=== PATIENT | male | born 1945 | race Caucasian/White ===

== ENCOUNTER → 2024-09-10 07:25 | Outpatient (REF) | payer BC, SELFPAY | LOC: RAD 07:25 | PROVIDERS: ATTENDING PHYSICIAN Specialist; FAMILY PHYSICIAN Family Medicine | DX: M19.012 Primary osteoarthritis, left shoulder (principal) | CPT/HCPCS: 73200 ==

== ENCOUNTER → 2024-12-20 07:38 | Outpatient (REF) | payer BC, SELFPAY | LOC: HWRCS 07:38 | PROVIDERS: ATTENDING PHYSICIAN Internal Medicine Cardiovascular Disease; FAMILY PHYSICIAN Family Medicine | DX: R07.89 Other chest pain (principal); I25.2 Old myocardial infarction | CPT/HCPCS: 78452; 93017; A9500 ==

== ENCOUNTER → 2025-01-06 12:48 | Outpatient (REF) | payer BC, SELFPAY | LOC: HWRCS 12:48 | PROVIDERS: ATTENDING PHYSICIAN Internal Medicine Cardiovascular Disease; FAMILY PHYSICIAN Family Medicine | DX: I25.10 Atherosclerotic heart disease of native coronary artery without angina pectoris (principal); I42.9 Cardiomyopathy, unspecified | CPT/HCPCS: 93306 ==

== ENCOUNTER 2025-03-26 06:13 | Day surgery (SDC) | payer BC, SELFPAY ==
--- NOTE | 2025-03-05 10:57 | CM ---
CM reviewed medical records. Patient lives independently with . Patient does have a history of VN, but is currently not on service. Patient does not have a SNF history. Patient does not have a cane or walker. Patient is active with his PCP.
Patient has medication coverage.
Patient's will be available for supervision post operatively.
PLAN: home, outpatient PT when medically cleared.
[2025-03-11 14:10] VITALS: BMI 27.1
[2025-03-11 14:43] LABS: Hematocrit 44.3 % (39.0-52.0); Hemoglobin 15.4 g/dL (13.0-18.0); Mean Corp Hgb Conc. 34.8 g/dL (33.0-37.0); Mean Corpuscular Volume 87.0 fL (80.0-94.0); Platelet Count 204 10^3/uL (130-400); Red Cell Dist. Width 12.3 % (11.5-14.5)
[2025-03-11 14:56] VITALS: BMI 27.1
[2025-03-11 15:00] LABS: ALT (SGPT) 33 U/L (0-50); AST (SGOT) 27 U/L (17-59); Albumin 4.5 g/dl (3.5-5.0); Alkaline Phosphatase 59 U/L (38-126); Blood Urea Nitrogen 23 mg/dl (9-20); Calcium 8.7 mg/dl (8.4-10.2); Carbon Dioxide 25 mmol/L (22-30); Chloride 106 mmol/L (98-107); Estimated Creatinine Clearance 69 ml/min; Glucose 87 mg/dl (70-99); Potassium 4.4 mmol/L (3.5-5.1); Sodium 139 mmol/L (135-145); Total Protein 7.3 g/dl (6.3-8.2); eGFR > 60.00
[2025-03-12 07:32] LABS: Glycohemoglobin (HgbA1c) 5.8 % (4.0-5.6)
[2025-03-26] VITALS (8 sets, daily range): BP systolic 126–133; BP diastolic 70–73
[2025-03-26] MEDS: CELEBREX 200 MG PO (07:03)
[2025-03-26] MEDS: TYLENOL 1000 MG PO (07:03)
[2025-03-26] MEDS: NORMOSOL-R/PLASMALYTE-A 1000 IV (07:03)
--- NOTE | 2025-03-26 10:43 | W.DS.TRANS ---
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
-
Discharge Instructions:
Sleep Apnea Risk Intermediate
Discharge Diagnosis/Procedures Delvis Moreno 03/26/25
Diet As tolerated
Activity No strenuous activity
Driving Restrictions No driving
Instructions:
Stand-Alone Forms: SDS Total Shoulder D/C Inst.
Changes to Home Medications: Yes
Discharge Medications:
DC Medications w/original date entered in [employer]
atorvastatin 40 mg tablet 40 mg PO QPM High cholesterol 04/25/18
cholecalciferol (vitamin D3) 50 mcg (2,000 unit) tablet 2,000 units PO DAILY 03/30/21
Vitamin B-12 1 tab PO DAILY 03/10/25
magnesium 2 tab PO HS 03/10/25
celecoxib 200 mg capsule (Celebrex) 200 mg PO DAILY #14 caps 03/11/25
doxycycline monohydrate 100 mg capsule 100 mg PO BID #7 caps 03/11/25
famotidine 20 mg tablet (Pepcid) 20 mg PO HS #30 tabs 03/11/25
gabapentin 300 mg capsule 300 mg PO HS neuropathic pain/sleep #10 caps 03/11/25
mupirocin 2 % topical ointment 1 applic intranasal BID #1 tube 03/11/25
ondansetron HCl 4 mg tablet 4 mg PO Q6H PRN nausea and vomiting #30 tabs 03/11/25
oxycodone 5 mg tablet 5 - 10 mg (1 - 2 x 5 mg) PO Q6H PRN moderate-severe pain #30 tabs 03/11/25
Saccharomyces boulardii 250 mg capsule (Florastor) 250 mg PO BID #1 cap 03/26/25
aspirin 325 mg tablet 325 mg PO DAILY blood clot prevention #1 tab 03/26/25
docusate sodium 100 mg capsule (Colace) 100 mg PO BID stool softner #1 cap 03/26/25
sennosides 8.6 mg tablet (Senokot) 17.2 mg (2 x 8.6 mg) PO BID laxative #2 tabs 03/26/25
Home Medication Changes
celecoxib 200 mg capsule (Celebrex) 200 mg PO DAILY #14 caps 03/11/25
doxycycline monohydrate 100 mg capsule 100 mg PO BID #7 caps 03/11/25
famotidine 20 mg tablet (Pepcid) 20 mg PO HS #30 tabs 03/11/25
gabapentin 300 mg capsule 300 mg PO HS neuropathic pain/sleep #10 caps 03/11/25
mupirocin 2 % topical ointment 1 applic intranasal BID #1 tube 03/11/25
ondansetron HCl 4 mg tablet 4 mg PO Q6H PRN nausea and vomiting #30 tabs 03/11/25
oxycodone 5 mg tablet 5 - 10 mg (1 - 2 x 5 mg) PO Q6H PRN moderate-severe pain #30 tabs 03/11/25
Saccharomyces boulardii 250 mg capsule (Florastor) 250 mg PO BID #1 cap 03/26/25
aspirin 325 mg tablet 325 mg PO DAILY blood clot prevention #1 tab 03/26/25
docusate sodium 100 mg capsule (Colace) 100 mg PO BID stool softner #1 cap 03/26/25
sennosides 8.6 mg tablet (Senokot) 17.2 mg (2 x 8.6 mg) PO BID laxative #2 tabs 03/26/25
Pending Results: No
[2025-03-26] MEDS: ANCEF 5 IV (11:47)
== END 2025-03-26 11:55 | disposition home or self-care (01) ==
LOC: SDS 06:13
PROVIDERS: ATTENDING PHYSICIAN Orthopaedic Surgery Hand Surgery; FAMILY PHYSICIAN Family Medicine; OTHER PHYSICIAN Physician Assistant
DX: M19.012 Primary osteoarthritis, left shoulder (principal)
CPT/HCPCS: 23472; C1776; C1713; 36415; 73020; 80053; 83036; 85027; 87070; 93005

== ENCOUNTER 2025-04-14 18:46 | Emergency (ER) | payer BC, MEDICARE, SELFPAY ==
[2025-04-14 18:51] VITALS: BP 164/79
[2025-04-14 19:33] LABS: Urine Character Clear (Clear)
[2025-04-14 19:39] LABS: Urine Squamous Cell 0-2 /LPF (Few)
[2025-04-14 19:40] LABS: Urine White Cell 0-2 /HPF (0-5)
[2025-04-14 19:41] LABS: Hematocrit 44.0 % (39.0-52.0); Hemoglobin 15.1 g/dL (13.0-18.0); Mean Corp Hgb Conc. 34.3 g/dL (33.0-37.0); Mean Corpuscular Volume 86.3 fL (80.0-94.0); Nucleated Red Blood Cells % 0 % (-); Platelet Count 206 10^3/uL (130-400); Red Cell Dist. Width 13.1 % (11.5-14.5)
[2025-04-14 19:54] LABS: ALT (SGPT) 25 U/L (0-50); AST (SGOT) 23 U/L (17-59); Albumin 4.8 g/dl (3.5-5.0); Alkaline Phosphatase 71 U/L (38-126); Blood Urea Nitrogen 27 mg/dl (9-20); Calcium 9.4 mg/dl (8.4-10.2); Carbon Dioxide 24 mmol/L (22-30); Chloride 103 mmol/L (98-107); Glucose 98 mg/dl (70-99); Potassium 4.0 mmol/L (3.5-5.1); Sodium 138 mmol/L (135-145); Total Protein 8.0 g/dl (6.3-8.2); eGFR > 60.00
[2025-04-14 21:14] VITALS: BP 146/75
[2025-04-14] MEDS: TYLENOL 650 MG PO (21:17)
--- NOTE | 2025-04-14 22:29 | ED.GENMED ---
History of Present Illness
General
Chief Complaint: Fever
Source: patient
Time Seen by Provider: 04/14/25 22:15
History of Present Illness
History of Present Illness:
79-year-old male presents the emergency room for evaluation of a fever. Patient had temperature today of 102.6. Patient was particular concerned about his fever because he had a left shoulder replacement performed on March 26. He is not having
increased pain in the joint. Patient denies any cough, abdominal pain, urinary symptoms, sore throat, nausea or vomiting. He denies feeling short of breath. He does not have any chest pain nor pain with deep inspiration. Pt has not noticed any
rash. he is not aware of any tick exposures.
Past History
Past History
ED Past Medical History: CAD, Cancer (Prostate cancer), Hypercholesterolemia, [place] (1985) and Other (pulmonary embolism)
ED Past Surgical History: Cardiac (CABG 2012, cardiac catheterization 2017), Tonsilectomy and Urological (TURP 2005)
Social History
Tobacco: Non-smoker
Alcohol: None
Drug: None
Personal:
Living: with family
Employment: Employed
Family History
Family History: CAD
Phy Exam
Physical Exam
Physical Exam:
General: Awake, Alert, Oriented X3. No acute distress.
Vitals: unremarkable
Head: Atraumatic
Eyes: Pupils equal, EOMI
Throat: Airway intact, no exudates
Neck: Trachea midline
Lungs: Clear and equal b/l
Heart: Regular rate, no murmurs
Abd: Soft, Nontender, No pulsatile mass
Neuro: Nonfocal
Skin: Warm, dry, no rash
Extremities: pulses equal b/l, no edema. Left shoulder incision well-approximated and covered with Steri-Strips. There is no erythema or discharge noted. The shoulder itself does not appear particularly swollen. There is no redness about the
joint itself.
Course
Orders/Labs/Results
Orders:
Orders
04/14/25 19:00
Electrocardiogram (*1) Urgent
Reason for Study: Other
Other Reason for Exam: Possible Sepsis
Cardiac Monitoring- Treatment ONCE
EKG- Treatment ONCE
IV Insert/Care/Rem.- Treatment PRN
O2 Therapy [RESP] Urgent
Titrate/Wean O2 to maintain O2 sat greater than (%): 93
Special Instructions: TO MAINTAIN CONTINUOUS O2 SATS > OR = 93%
Pulse Ox/cont/shift [RESP] Urgent
Quantity: 1
Special Instructions: CONTINUOUS
04/14/25 19:22
Complete Blood Count/With Diff Urgent
Comprehensive Metabolic Panel Urgent
Lactic Acid Q4H
Comment: ON ICE, CANCEL 2ND ORDER IF FIRST LACTIC ACID LEVEL <2
Lyme Progressive Urgent
Date Specimen was Collected: 04/14/25
Time Specimen was Collected: 19:00
Comment: ADD ON
Urinalysis Reflex To Culture Urgent
Date Specimen was Collected: 04/14/25
Time Specimen was Collected: 19:00
Urine Microscopic Reflex Cult Urgent
Blood Culture Q20M
LEE Source: Blood/Venous
Specimen Description:
Date Specimen was Collected: 04/14/25
Time Specimen was Collected: 19:00
Comment: Urgent from separate sites. If patient screens positive for possible sepsis
04/14/25 21:14
Acetaminophen [Tylenol] 650 mg .ROUTE .STK-MED ONE
04/14/25 21:16
Acetaminophen [Tylenol] 650 mg PO NOW STA
04/14/25 22:23
0.9% Sodium Chloride 1000 ml [Nss] 1,000 ml IV BOLUS
04/14/25 22:30
CR Chest - 2 Views Urgent
Comment:
Reason For Exam: fever
04/14/25 22:43
COVID-19 Antigen Urgent
Source: Nasal Swab
Ehrlichia/Anaplasma by PCR [S] Urgent
Blood Culture Q20M
LEE Source: Blood/Venous
Specimen Description:
Comment: Urgent from separate sites. If patient screens positive for possible sepsis
Blood Parasites Urgent
LEE Source: Blood/Venous
Specimen Description:
Influenza A+B Rapid Molecular Urgent
LEE Source: Nasal Swab
Specimen Description:
04/15/25 00:34
Add On- LAB Urgent
Tests Added?: lyme progressive
Abnormal Lab Results
04/14/25
19:22
Absolute Neuts (auto) 6.6 H 10^3/uL
(1.4-6.5)
Absolute Lymphs (auto) 0.6 L 10^3/uL
(1.2-3.4)
Neutrophils % 85.1 H %
(42.2-75.2)
Lymphocytes % 8.2 L %
(20.5-51.1)
BUN 27 H mg/dl
(9-20)
Lactic Acid 2.1 H mmol/L
(0.7-2.0)
Total Bilirubin 2.1 H mg/dl
(0.2-1.3)
Ur Occult Blood Reflex 2+ A
(Negative)
Urine RBC 3-6 A /HPF
(0-2)
Urine Bacteria (Reflex) Few A
(Negative)
Urine Albumin (Reflex) 1+ A
(Neg - Trace)
04/14/25 19:22
04/14/25 19:22
Vital Signs
Initial and Last Documented VS:
Initial Vital Signs
Temp Pulse Resp BP Pulse Ox
100.3 F 99 20 164/79 96
04/14/25 18:51 04/14/25 18:51 04/14/25 18:51 04/14/25 18:51 04/14/25 18:51
Last Documented Vital Signs
Temp Pulse Resp BP Pulse Ox
98.7 F 85 26 146/75 95
04/14/25 23:14 04/14/25 23:10 04/14/25 23:10 04/14/25 21:14 04/14/25 22:30
MDM/Problems Addressed
Differential Diagnosis Includes:
Viral illness, pneumonia, urinary tract infection, tickborne illness like Lyme, babesiosis etc.
MDM/Problems Addressed:
Patient presents with fever and chills. Exam does not suggest a specific source of infection. However his left shoulder incision appears intact. There is no erythema or purulent discharge from the wound itself. The s patient has not experienced
increased pain in the left shoulder. Overall patient is hemodynamically stable. He is stable for discharge home and we will contact him if any outstanding tests are positive. Emphasized patient to return to the emergency room if he has a getting
worse or has other concerns
*Pulse Oximetry
SaO2: 95
Oxygen Mode of Delivery: Room air
Patient hypoxic: no
*Critical Care Note
Total Time (30-74mins, 75-104mins- exclusive of procedures): Not Applicable
ED Attending Note
-
Portions of this chart may have been created with voice recognition software.� Occasional wrong word or��sound alike� substitutions may have occurred due to the inherent limitations of voice recognition software.
Discharge Plan
Departure
Patient Disposition: Home (Routine Discharge)
Date of Disposition: 04/15/25
Time of Disposition: 00:33
Patient with high blood pressure during this ER visit?: Yes
Condition: Good
Discharge Problem:
Fever
Instructions: Fever, Adult (DC), Viral Syndrome (DC), BLOOD PRESSURE
Prescriptions:
No Action
atorvastatin 40 MG tablet
40 mg PO QPM
cholecalciferol (vitamin D3) 2,000 UNITS tablet
2,000 units PO DAILY 0RF
Vitamin B-12
1 tab PO DAILY
magnesium
2 tab PO HS
oxycodone 5 mg tablet
5 - 10 mg PO Q6H PRN (Reason: moderate-severe pain) Qty: 30 0RF
Rx Instructions:
1 tab for moderate pain, 2 if severe.
Dx total joint.
celecoxib [Celebrex] 200 mg capsule
200 mg PO DAILY Qty: 14 0RF
Rx Instructions:
Take with food.
DO NOT take within 2 hours of Aspirin post-surgery.
gabapentin 300 mg capsule
300 mg PO HS Qty: 10 0RF
ondansetron HCl 4 mg tablet
4 mg PO Q6H PRN (Reason: nausea and vomiting) Qty: 30 0RF
famotidine [Pepcid] 20 mg tablet
20 mg PO HS Qty: 30 0RF
Rx Instructions:
Take nightly while on post-surgical pain meds to reduce GI upset.
doxycycline monohydrate 100 mg capsule
100 mg PO BID Qty: 7 0RF
Rx Instructions:
Start night of discharge and continue twice a day until finished.
Take with probiotic.
mupirocin 2 % ointment
1 applic intranasal BID Qty: 1 0RF
aspirin 325 mg tablet
325 mg PO DAILY Qty: 1 0RF
Rx Instructions:
Take with food
docusate sodium [Colace] 100 mg capsule
100 mg PO BID Qty: 1 0RF
Saccharomyces boulardii [Florastor] 250 mg capsule
250 mg PO BID Qty: 1 0RF
sennosides [Senokot] 8.6 mg tablet
17.2 mg PO BID Qty: 2 0RF
Referrals:
Paolo Moreno MD [Family Provider, Family Practice]
Activity Restrictions/Additional Instructions:
Testing here in the emergency room does not reveal a source for your fever. Additional test are pending including test for tickborne illness and blood cultures. We will contact you if anything is positive. Return to the emergency room should you
feel like you are getting worse, Dr. Garcia communicate with me that it is fine for you to start moving the left shoulder
Interventions
Interventions:
*Risk Screen - Suicide Last Done: 04/14/25 18:51
*General Assessment Last Done: 04/14/25 18:51
*Neglect/Abuse Screening Last Done: 04/14/25 18:51
*ED- Fall Risk Assessment Last Done: 04/14/25 18:51
*ED COVID-19 Vaccine History Last Done: 04/14/25 18:51
*Nursing Disposition Last Done: 04/15/25 00:59
ED- Neurological Assessment Last Done: 04/14/25 23:13
ED-Skin Assessment Last Done: 04/14/25 23:14
Discharge Date and Time
Discharge Date/Time: 04/15/25 01:00
Print Language: YORUBA
[2025-04-14] MEDS: NSS 1000 IV (23:05)
[2025-04-14 23:34] LABS: COVID-19 Antigen Negative (Negative)
[2025-04-17 15:31] LABS: Lyme Antibody Screen, EIA Negative (Negative)
== END 2025-04-15 01:00 | disposition home or self-care (01) ==
LOC: EMR 18:46
PROVIDERS: Emergency Medicine; EMERGENCY PHYSICIAN Emergency Medicine; FAMILY PHYSICIAN Family Medicine
DX: R50.9 Fever, unspecified (principal); R03.0 Elevated blood-pressure reading, without diagnosis of hypertension; I25.810 Atherosclerosis of coronary artery bypass graft(s) without angina pectoris; E78.00 Pure hypercholesterolemia, unspecified; I25.2 Old myocardial infarction; Z95.1 Presence of aortocoronary bypass graft; Z86.711 Personal history of pulmonary embolism; Z85.46 Personal history of malignant neoplasm of prostate; Z90.79 Acquired absence of other genital organ(s); Z96.612 Presence of left artificial shoulder joint; Z82.49 Family history of ischemic heart disease and other diseases of the circulatory system
CPT/HCPCS: 99284; 96360; 71046; 80053; 81003; 81015; 83605; 85025; 86618; 87015; 87040; 87077; 87186; 87205; 87207; 87468; 87484; 87502; 87798; 87811

== ENCOUNTER 2025-04-15 13:54 | Emergency (ER) | payer BC, MEDICARE, SELFPAY ==
[2025-04-15 13:55] VITALS: BP 113/60
--- NOTE | 2025-04-15 15:24 | ED.GENMED ---
Addendum entered and electronically signed by Leonor Mejia PA-C 04/16/25 08:01:
Gram-negative rods in the blood cultures, patient was called back for this yesterday but was feeling well. He had a second set of cultures drawn and was sent home. called saying that the patient now has a new fever
I spoke with the saying that he should come back in to be evaluated and likely admitted
Original Note:
History of Present Illness
General
Chief Complaint: Fever
Time Seen by Provider: 04/15/25 14:10
History of Present Illness
History of Present Illness:
79-year-old male presents to the emergency department due to abnormal blood culture results. He was seen in the emergency department yesterday for evaluation of fever and at which time broad lab evaluation was grossly unremarkable. He was
discharged with tick panel and blood cultures pending. Was called to return to the ER today due to 1 out of 2 blood cultures positive for gram-negative bacilli. He is approximately 18 days status post left total shoulder arthroplasty. He states
fever resolved today and he feels overall well. Denies URI symptoms, coughing, shortness of breath, chest pain, rashes, painful urination, nausea, vomiting, or diarrhea.
Past History
Past History
ED Past Medical History: CAD, Cancer (Prostate cancer), Hypercholesterolemia, [place] (1985) and Other (pulmonary embolism)
ED Past Surgical History: Cardiac (CABG 2012, cardiac catheterization 2017), Tonsilectomy and Urological (TURP 2005)
Social History
Tobacco: Non-smoker
Alcohol: None
Drug: None
Personal:
Living: with family
Employment: Employed
Family History
Family History: CAD
Review of Systems
Review of Systems
Allergies reviewed?: Yes
All Other Systems: ROS reviewed and negative except as documented in HPI and ROS
Phy Exam
Physical Exam
Physical Exam:
GEN: Well appearing, NAD, WDWN
HEENT: Oral mucosa moist, no scleral icterus
Cardiac: Regular rate
Lung: No respiratory distress, no tachypnea
MSK: No gross deformity or injuries
Skin: Good color, no pallor or jaundice, no rashes
Neuro: AO x3, moves all extremities freely
Psych: Calm, cooperative
Course
Orders/Labs/Results
Orders:
Orders
04/15/25 15:16
Blood Culture Q30M
LEE Source: Blood/Venous
Specimen Description:
04/15/25 15:31
Blood Culture Q30M
LEE Source: Blood/Venous
Specimen Description:
Vital Signs
Initial and Last Documented VS:
Initial Vital Signs
Temp Pulse Resp BP Pulse Ox
97.5 F 65 18 113/60 96
04/15/25 13:55 04/15/25 13:55 04/15/25 13:55 04/15/25 13:55 04/15/25 13:55
Last Documented Vital Signs
Temp Pulse Resp BP Pulse Ox
97.5 F 65 18 113/60 96
04/15/25 13:55 04/15/25 13:55 04/15/25 13:55 04/15/25 13:55 04/15/25 15:25
MDM/Problems Addressed
MDM/Problems Addressed:
Patient is clinically well, given that 1 out of 2 are positive this remains a potential contaminant. I discussed the case with infectious disease who feels it is reasonable to hold off on empiric antibiotics pending repeat blood cultures and
further speciation of bacteria. Patient is comfortable with this plan, no antibiotics initiated at this point.
*Pulse Oximetry
SaO2: 96
Oxygen Mode of Delivery: Room air
Patient hypoxic: no
*Critical Care Note
Total Time (30-74mins, 75-104mins- exclusive of procedures): Not Applicable
ED Attending Note
-
Portions of this chart may have been created with voice recognition software.� Occasional wrong word or��sound alike� substitutions may have occurred due to the inherent limitations of voice recognition software.
Discharge Plan
Departure
Patient Disposition: Home (Routine Discharge)
Date of Disposition: 04/15/25
Time of Disposition: 15:24
Patient with high blood pressure during this ER visit?: No
Discharge Problem:
Positive blood culture
Prescriptions:
No Action
atorvastatin 40 MG tablet
40 mg PO QPM
cholecalciferol (vitamin D3) 2,000 UNITS tablet
2,000 units PO DAILY 0RF
Vitamin B-12
1 tab PO DAILY
magnesium
2 tab PO HS
oxycodone 5 mg tablet
5 - 10 mg PO Q6H PRN (Reason: moderate-severe pain) Qty: 30 0RF
Rx Instructions:
1 tab for moderate pain, 2 if severe.
Dx total joint.
celecoxib [Celebrex] 200 mg capsule
200 mg PO DAILY Qty: 14 0RF
Rx Instructions:
Take with food.
DO NOT take within 2 hours of Aspirin post-surgery.
gabapentin 300 mg capsule
300 mg PO HS Qty: 10 0RF
ondansetron HCl 4 mg tablet
4 mg PO Q6H PRN (Reason: nausea and vomiting) Qty: 30 0RF
famotidine [Pepcid] 20 mg tablet
20 mg PO HS Qty: 30 0RF
Rx Instructions:
Take nightly while on post-surgical pain meds to reduce GI upset.
doxycycline monohydrate 100 mg capsule
100 mg PO BID Qty: 7 0RF
Rx Instructions:
Start night of discharge and continue twice a day until finished.
Take with probiotic.
mupirocin 2 % ointment
1 applic intranasal BID Qty: 1 0RF
aspirin 325 mg tablet
325 mg PO DAILY Qty: 1 0RF
Rx Instructions:
Take with food
docusate sodium [Colace] 100 mg capsule
100 mg PO BID Qty: 1 0RF
Saccharomyces boulardii [Florastor] 250 mg capsule
250 mg PO BID Qty: 1 0RF
sennosides [Senokot] 8.6 mg tablet
17.2 mg PO BID Qty: 2 0RF
Referrals:
Paolo Moreno MD [Family Provider, Family Practice]
Activity Restrictions/Additional Instructions:
We will follow your blood cultures from both yesterday and today and contact you if there are any results that warrant treatment. These result each morning over the course of 5 days before being finalized. Return to the ER if you develop a
recurrence of fever
Interventions
Interventions:
*Risk Screen - Suicide Last Done: 04/15/25 13:55
*General Assessment Last Done: 04/15/25 13:55
*Neglect/Abuse Screening Last Done: 04/15/25 13:55
*Nursing Disposition Last Done: 04/15/25 15:50
ED- Neurological Assessment Last Done: 04/15/25 15:50
ED-Skin Assessment Last Done: 04/15/25 15:50
Discharge Date and Time
Discharge Date/Time: 04/15/25 15:51
Print Language: GUAMANIAN
== END 2025-04-15 15:51 | disposition home or self-care (01) ==
LOC: EMR 13:54
PROVIDERS: EMERGENCY PHYSICIAN Emergency Medicine; FAMILY PHYSICIAN Family Medicine
DX: R50.9 Fever, unspecified (principal); R78.81 Bacteremia; I25.10 Atherosclerotic heart disease of native coronary artery without angina pectoris; E78.00 Pure hypercholesterolemia, unspecified; I25.2 Old myocardial infarction; Z98.890 Other specified postprocedural states; Z79.82 Long term (current) use of aspirin; Z95.1 Presence of aortocoronary bypass graft; Z86.711 Personal history of pulmonary embolism; Z85.46 Personal history of malignant neoplasm of prostate; Z88.0 Allergy status to penicillin; Z91.030 Bee allergy status
CPT/HCPCS: 99283; 87040

== ENCOUNTER 2025-04-16 13:51 | Inpatient (IN) | payer BC, MEDICARE, SELFPAY ==
[2025-04-16] VITALS (7 sets, daily range): BP systolic 123–155; BP diastolic 66–80; BMI 28.5; BMI 28.0
[2025-04-16 11:18] LABS: Urine Character Clear (Clear)
[2025-04-16 11:26] LABS: Hematocrit 38.9 % (39.0-52.0); Hemoglobin 13.3 g/dL (13.0-18.0); Mean Corp Hgb Conc. 34.2 g/dL (33.0-37.0); Mean Corpuscular Volume 85.9 fL (80.0-94.0); Nucleated Red Blood Cells % 0 % (-); Platelet Count 177 10^3/uL (130-400); Red Cell Dist. Width 13.2 % (11.5-14.5)
[2025-04-16] MEDS: MAXIPIME 2000 MG IV (11:28)
[2025-04-16 11:34] LABS: ALT (SGPT) 28 U/L (0-50); AST (SGOT) 26 U/L (17-59); Albumin 3.8 g/dl (3.5-5.0); Alkaline Phosphatase 53 U/L (38-126); Blood Urea Nitrogen 17 mg/dl (9-20); Calcium 8.7 mg/dl (8.4-10.2); Carbon Dioxide 25 mmol/L (22-30); Chloride 107 mmol/L (98-107); Estimated Creatinine Clearance 75 ml/min; Glucose 102 mg/dl (70-99); Potassium 3.8 mmol/L (3.5-5.1); Sodium 138 mmol/L (135-145); Total Protein 6.5 g/dl (6.3-8.2); eGFR > 60.00
[2025-04-16 11:40] LABS: Urine White Cell 0-2 /HPF (0-5)
--- NOTE | 2025-04-16 11:48 | ED.GENMED ---
History of Present Illness
General
Chief Complaint: Fever
Source: patient
Time Seen by Provider: 04/16/25 09:29
History of Present Illness
History of Present Illness:
Note:
CHIEF COMPLAINT(S)
Fever and chills.
HISTORY OF PRESENT ILLNESS
The patient is a 79-year-old male who presented to the emergency department with a high fever and chills that started recently. Initial blood cultures drawn earlier showed the presence of bacteria in the bloodstream. The specific bacteria identified
is a gram-negative bacilli, which is uncommon on the skin and may originate from the urinary or gastrointestinal tracts. This morning, the patient woke up with a slightly elevated fever after being advised to return to the hospital. He mentions
intermittent coughing but denies any significant respiratory distress, abdominal pain, or urinary discomfort, except for increased frequency of urination at night due to shoulder pain.
The patient underwent shoulder surgery, which is currently healing. Post-surgery, there was some swelling and redness around the site, though it has improved. He complains of postoperative shoulder discomfort, particularly edema, but denies severe
pain suggestive of joint infection. His last recorded fever was 100.6�F, and he took ibuprofen before arrival at the hospital.
PAST MEDICAL AND SURIGICAL HISTORY
- Recent shoulder surgery.
- History of coronary artery bypass grafting (CABG).
CHRONIC MEDICAL CONDITIONS SIGNIFICANTLY AFFECTING CARE
- Coronary artery disease.
REVIEW OF SYSTEMS
- General: Reports fever and chills.
- Respiratory: Intermittent cough.
- Genitourinary: Increased frequency of urination.
- Musculoskeletal: Postoperative shoulder pain with mild edema.
PHYSICAL EXAM
General: Awake, alert, oriented.
Skin: Warm, dry, postoperative skin wound to the left shoulder with Steri-Strips in place, no significant redness or joint effusion, mild peripheral edema noted in the left forearm.
Head: Normocephalic, atraumatic.
Neck: Supple, trachea midline.
Eyes, Ears, Nose, Mouth and Throat: Oral mucosa moist.
Cardiovascular: Normal peripheral perfusion, no edema, no heart murmurs.
Respiratory: Clear to auscultation bilaterally.
Gastrointestinal: Abdomen soft and non-tender.
Back: Normal range of motion, no costovertebral angle tenderness.
Musculoskeletal: Left shoulder wound healing with mild edema, normal distal capillary refill.
Neurological: Alert and oriented to person, place, time, and situation.
Psychiatric: Cooperative, appropriate mood and affect.
PLAN
- Repeat blood cultures and obtain a urine sample.
- Monitor patient in the hospital overnight for observation due to concerns over bloodstream infection.
- Initiate treatment with antibiotics to cover gram-negative organisms while awaiting further blood culture results.
- Compare current white blood cell count and urine analysis with prior results.
DIFFERENTIAL DIAGNOSIS
The Differential Diagnosis includes, in no particular order and is not limited to:
1. Urinary tract infection
2. Post-surgical infection
3. Pneumonia
4. Acute pyelonephritis
5. Biliary tract infection
6. Soft tissue infection
7. Endocarditis
8. Prostatitis
9. Abdominal source of infection
10. Gram-negative bacteremia from an unidentified source.
Disposition:
SUMMARY OF ENCOUNTER
The patient, a 79-year-old male, presented to the emergency department with low-grade fever and chills, and previously identified gram-negative bacilli in blood cultures. There is a suspicion of Escherichia coli bacteremia as the gram-negative
organism. The patients current temperature is 100.6�F, and his white blood cell count has declined from 7.8 to 2.8 over two days. Urinalysis shows minimal blood and few bacteria. The shoulder wound from recent surgery appears intact with no redness.
The source of infection remains unclear, necessitating further investigation. Blood cultures have been repeated, and the patient is treated with intravenous antibiotics in the emergency department.
DISPOSITION
Admit.
EMERGENCY TREATMENTS ADMINISTERED
Intravenous cefepime was initiated, given the patients penicillin allergy, which reportedly causes hives.
PLAN
- Monitor patient overnight for observation due to concerns over bloodstream infection.
- Continue intravenous antibiotic therapy to cover gram-negative organisms.
- Repeat blood cultures and obtain a urine sample.
- Further workup to identify the source of infection, particularly E. coli bacteremia.
INDEPENDENT REVIEW OF LABS AND INTERPRETATION OF TESTS
My independent review of the CBC shows a decline in white blood cell count from 7.8 to 2.8 indicating potential bone marrow suppression or infection.
My independent review of urinalysis indicates a presence of minor blood and few bacteria, suggesting a potential urinary source.
MEDICATION RECONCILIATION
Cefepime initiated for IV antibiotic therapy due to reported penicillin allergy causing hives.
MEDICAL DECISION MAKING
- Number and Complexity of Problems Addressed: Chronic conditions affecting care [Coronary artery disease]; Differential Diagnosis: Urinary tract infection, Post-surgical infection, Pneumonia, Acute pyelonephritis, Biliary tract infection, Soft
tissue infection, Endocarditis, Prostatitis, Abdominal source of infection, Gram-negative bacteremia from an unidentified source.
- Data:
Category 1: Tests and documents - Blood cultures repeated, urinalysis reviewed.
Category 3: Discussion of management with other healthcare providers to determine the continuation of IV antibiotics and further investigation of E. coli bacteremia.
DIAGNOSIS
- Suspected Escherichia coli bacteremia (ICD-10: A41.51).
Past History
Past History
ED Past Medical History: CAD, Cancer (Prostate cancer), Hypercholesterolemia, [place] (1985) and Other (pulmonary embolism)
ED Past Surgical History: Cardiac (CABG 2012, cardiac catheterization 2017), Tonsilectomy and Urological (TURP 2005)
Social History
Tobacco: Non-smoker
Alcohol: None
Drug: None
Personal:
Living: with family
Employment: Employed
Family History
Family History: CAD
Phy Exam
Physical Exam
Physical Exam:
.
Course
Orders/Labs/Results
Orders:
Orders
04/16/25 10:56
Complete Blood Count/With Diff Urgent
Comprehensive Metabolic Panel Urgent
Direct Bilirubin Urgent
Comment: ADD ON
Lactic Acid Q4H
Comment: CANCEL 2nd LACTIC ACID IF 1st LACTIC ACID IS LESS THAN 2
Blood Culture Q30M
LEE Source: Blood/Venous
Specimen Description:
04/16/25 10:57
Urinalysis Reflex To Culture Urgent
Date Specimen was Collected: 04/16/25
Time Specimen was Collected: 10:21
Urine Microscopic Reflex Cult Urgent
04/16/25 10:58
Blood Culture Q30M
LEE Source: Blood/Venous
Specimen Description:
04/16/25 11:12
Cefepime HCl [Maxipime] 2,000 mg IV NOW STA
04/16/25 11:26
Sterile Water [Sterile Water For Injection] 10 ml .ROUTE .STK-MED ONE
04/16/25 11:48
0.9% Sodium Chloride 1000 ml [Nss] 1,000 ml IV BOLUS
04/16/25 13:04
Add On- LAB Routine
Tests Added?: direct bilirubin
04/16/25 13:25
INFECTIOUS DISEASE CONSULT Routine
Consulting Provider: Larissa Bush
Was physician already notified: Yes
04/16/25 13:28
Admit/Transfer Patient As Directed
Co-Sign Provider:
Level of Care: Inpatient admission
Assign to:: Medical/Surgical
Physician / Group: Tracy Shukla
Diagnosis: E. Coli Bacteremia
Reason for Hospitalization: E. Coli Bacteremia
Expected length of stay greater than two midnights?: Yes
ELOS- Estimated Length of Stay in days: 3
I certify the patient meets the requirements for IP care: Yes
PRN Pain Medication Management As Directed
May give lesser potent ordered pain med per pt: Yes
preference::
Protocol:: Medication orders for pain may be administered in a
manner that supports deferring to patient preference
when the pt is:
- Requesting an ordered lesser potent pain medication.
Least to most potent pain medications are defined
as: acetaminophen < NSAID < tramadol < opioids
(morphine, oxycodone, hydromorphone).
- Requesting a lesser dose of the same medication IF
ORDERED.
- Requesting a less intrusive route of administration
if both routes are prescribed by the provider (PO <
IV).
04/16/25 13:30
Code Status As Directed
Resuscitation Status: Full Code
04/16/25 Dinner
Cholesterol Lowering
At Your Request: Full Participation
Does patient need a safe tray?: No
Cholesterol Lowering: Sodium, 2 Gram
04/16/25 15:25
Acetaminophen [Tylenol] 650 mg PO Q4HPRN PRN
Bisacodyl [Dulcolax] 10 mg RECTAL [id number] PRN
Docusate W/Senna [Senokot-S] 1 tablet PO BIDPRN PRN
Polyethylene Glycol Powder [Miralax] 17 grams PO DAILYPRN PRN
04/16/25 15:25
Activity As Directed
Activity Level: As Tolerated
Vital Signs As Directed
Frequency: Per unit guidelines
DX Deep Vein Thrombosis Video Routine
04/16/25 18:00
Atorvastatin [Lipitor] 40 mg PO QPM
Enoxaparin Sodium [Lovenox] 40 mg SC QPM
04/16/25 20:00
CefTRIAXone [Rocephin] 2,000 mg IV Q24H
04/17/25 05:38
Basic Metabolic Panel IN AM
Complete Blood Count/With Diff IN AM
Magnesium IN AM
04/17/25 08:00
Aspirin 325 mg PO DAILY
Abnormal Lab Results
04/16/25 04/16/25
10:56 10:57
WBC 2.8 L 10^3/uL
(4.8-10.8)
RBC 4.53 L 10^6/uL
(4.70-6.10)
Hct 38.9 L %
(39.0-52.0)
Absolute Neuts (auto) 1.3 L 10^3/uL
(1.4-6.5)
Absolute Lymphs (auto) 0.9 L 10^3/uL
(1.2-3.4)
Monocytes % 17.1 H %
(1.7-9.3)
Glucose 102 H mg/dl
(70-99)
Total Bilirubin 1.5 H mg/dl
(0.2-1.3)
Ur Occult Blood Reflex 3+ A
(Negative)
Urine RBC 7-10 A /HPF
(0-2)
Urine Bacteria (Reflex) Few A
(Negative)
Urine Albumin (Reflex) 1+ A
(Neg - Trace)
04/16/25 10:56
04/16/25 10:56
Vital Signs
Initial and Last Documented VS:
Initial Vital Signs
Temp Pulse Resp BP Pulse Ox
98.4 F 70 16 123/66 96
04/16/25 09:11 04/16/25 09:11 04/16/25 09:11 04/16/25 09:11 04/16/25 09:11
Last Documented Vital Signs
Temp Pulse Resp BP Pulse Ox
98.0 F 63 18 152/76 98
04/17/25 15:00 04/17/25 15:00 04/17/25 15:00 04/17/25 15:00 04/17/25 15:00
*Pulse Oximetry
SaO2: 98
Oxygen Mode of Delivery: Room air
Patient hypoxic: no
*Critical Care Note
Total Time (30-74mins, 75-104mins- exclusive of procedures): Not Applicable
ED Attending Note
-
Portions of this chart may have been created with voice recognition software.� Occasional wrong word or��sound alike� substitutions may have occurred due to the inherent limitations of voice recognition software.
Discharge Plan
Departure
Patient Disposition: Admit
Date of Disposition: 04/16/25
Time of Disposition: 11:50
Admit to: Med/Surg
Presentation/result/management discussed w/ accepting MD/DO: Hospitalist
Discharge Problem:
Bacteremia due to Gram-negative bacteria
Interventions
Interventions:
*Risk Screen - Suicide Last Done: 04/16/25 09:11
*General Assessment Last Done: 04/16/25 10:22
*Neglect/Abuse Screening Last Done: 04/16/25 09:11
*ED- Fall Risk Assessment Last Done: 04/16/25 10:22
*ED COVID-19 Vaccine History Last Done: 04/16/25 10:22
*Nursing Disposition Last Done: 04/16/25 15:25
ED- Neurological Assessment Last Done: 04/16/25 10:22
ED-Skin Assessment Last Done: 04/16/25 10:22
Discharge Date and Time
Discharge Date/Time: 04/16/25 15:26
[2025-04-16] MEDS: NSS 1000 IV (12:24)
--- NOTE | 2025-04-16 12:55 | CM ---
Patient seen at bedside in ED. Patient lives with and son who is disabled and they have DME for son but patient is independent of ADL's and IADL's. Patient stated that they live in a 2 story home and have a stair glide for patient son needs.
Patient PCP is Dr. Moreno and he uses the [facility] in [place] for pharmacy needs. 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 Patient stated that he has no concerns and plan is for discharge home with no needs. CM will continue to follow for
discharge planning needs.
Plan; home with ; watch for further medical needs, pending medical treatment plan
--- NOTE | 2025-04-16 12:56 | HPS.HSE ---
Family Physician
-
Family Physician: Paolo Moreno
Chief Complaint
-
fevers
History of Present Illness
Mr. Mayco Mendez is a 79 yo man with hx CAD s/p CABG, HLD, left shoulder replacement 03/26/25, ER visit 04/14 for fever (102.6) called back 04/15 for + blood culture gram negative rods but though possible contaminant as he had no symptoms (d/c'd home)
represents today with fever of 100.9
Patient currently denies recent cough/congestion. No nausea/vomiting. No abdominal pain. His left shoulder is healing well without significant pain. No dysuria. No joint pain or skin rash. No chest pain. No shortness of breath.
Medical History
Past Medical History
Past Medical History: Reports CAD and HTN
Past Surgical History: Reports Cardiac (CABG)
Social History
Tobacco: Non-smoker
Alcohol: None
Family History
Family History: Not pertinent
Allergies / Home Medications
Allergies reflects when Allergies were last updated in [facility].
Home Medications with original date entered in [facility]
Allergy/Medication List:
Allergies
Allergy/AdvReac Type Severity Reaction Status Date / Time
Penicillins Allergy Hives Verified 04/16/25 09:15
venom-honey bee (bee venom Allergy Swelling Verified 04/16/25 09:15
(honey bee))
Home Medications
atorvastatin 40 mg tablet 40 mg PO QPM High cholesterol 04/25/18
cyanocobalamin (vitamin B-12) 1,000 mcg tablet 1,000 mcg PO DAILY Supplement ##0 03/10/25
aspirin 325 mg tablet 325 mg PO DAILY blood clot prevention #1 tab 03/26/25
cholecalciferol (vitamin D3) 50 mcg (2,000 unit) tablet 2,000 units PO DAILY Supplement 04/16/25
ibuprofen 200 mg tablet (Advil) 400 mg PO Q6HPRN PRN mild pain 04/16/25
Review of Systems
-
History Source: Patient
A 12 point ROS was completed and negative except as noted: Yes
Physical Exam
Vital Signs
Vital Signs
Temp Pulse Resp BP Pulse Ox
97.8 F 56 22 145/71 98
04/16/25 12:25 04/16/25 12:15 04/16/25 12:15 04/16/25 12:00 04/16/25 11:50
Physical Exam
General: No Apparent Distress
HEENT: PERRLA
Respiratory: Clear; No Wheezes
Cardiac: S1/S2 and Regular Rhythm
GI: Soft, Non Tender and Non Distended
Genito-urinary: No costovertebral tender
Musculoskeletal: No Edema and Other (no mid-spine tenderness )
Skin: Warm and Dry; No Rash
Neuro: AO x 3
Psych: Calm
Laboratory Results
-
04/16/25 10:56
04/16/25 10:56
Laboratory Results
Lactic Acid 1.2 mmol/L (0.7-2.0) 04/16/25 10:56
Total Bilirubin 1.5 mg/dl (0.2-1.3) H 04/16/25 10:56
AST 26 U/L (17-59) 04/16/25 10:56
ALT 28 U/L (0-50) 04/16/25 10:56
Alkaline Phosphatase 53 U/L (38-126) 04/16/25 10:56
Data Reviewed
-
Diagnostic Radiology: Report Reviewed by me
Lab Data: Labs Reviewed by me
Impression/Plan
-
Mr. Mayco Mendez is a 79 yo man with hx CAD s/p CABG, HLD, left shoulder replacement 03/26/25, ER visit 04/14 for fever (102.6) with culture growing gram negative rods, called back to the ER.
Triage VS: T 98.4, P 70, RR 16, BP 123/66, SpO2 96%
LABS: WBC 2.8, Hg 13.3, PLT 177, Na 138, K+ 3.8, Cl 107, CO2 25, Cr 0.8, Glucose 102, Lactate 1.2, T. Bili 1.5, AST 26, ALT 28, Alk Phos 28
CXR 04/14/25
IMPRESSION:
No acute cardiopulmonary abnormality.
Chronic left basilar atelectasis/scarring, similar to prior.
E. Coli Bacteremia
-Unknown source, UA with 0-2 WBC, no abdominal pain
-Fever curve was improving without antibiotics - although low likelihood of E. Coli being a contaminant
-given completely benign abdominal exam, holding off on CT
-consult ID
-IV Ceftriaxone 2G q 24 hours
-s/p IVF in ER
CAD
Hx CABG 12 years ago
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
DVT PPx Lovenox subQ
FULL CODE
--- NOTE | 2025-04-16 15:24 | EDRN ---
Patient taken to room 339-2 on stretcher by patient transport.
--- NOTE | 2025-04-16 15:33 | CON.ID ---
Consultation
-
Date/Time Consultation Requested: April 16, 2025 1325
Date/Time Consultation Performed: April 16, 2025 1533
Requesting Provider: Dr. Tracy Shukla
Performing Provider: Dr. Larissa Bush
Reason for Consultation: Fever and bacteremia
Chief Complaint / Past History
Chief Complaint
Fever
History of Present Illness
History obtained from the patient as well as from his at the bedside. He is a 79-year-old male with history of CAD, recent left total shoulder arthroplasty on March 26 who presents to the ED today due to recurrence of fever. April 14, patient
started feeling unwell with chills and therefore he left work early. His found him at home huddled under the blanket which shaking chills. She took his temperature and it was 103. He went to the ER the same day where his temperature was
102.2. He received IV fluids, obtained blood cultures, sent off tickborne workup, Babesia smear negative, UA negative, chest x-ray negative. He was discharged without antibiotic pending lab work. Patient was called back to the ER April 15 due to
blood culture 1 out of 2 positive for E. coli. Patient was feeling well that day without symptoms or fevers. E. coli felt to be contaminant. Therefore repeat blood cultures x 2 obtained and discharged to home while awaiting cultures. However
this morning fever returned 100.6. He had sweats. No chills this time. He therefore came back to the ER. White count has decreased from 7.8 to 2.8. Platelet trending down. Bilirubin 1.5, direct bilirubin 0.4. Repeat blood cultures obtained
and started on ceftriaxone. Patient denies any symptoms. No headache, sinus congestion, or sore throat. No fatigue. No cough or shortness of breath. No nausea, vomiting, abdominal pain, or diarrhea. No dysuria, urgency, frequency, or flank
pain. No rash. No arthralgias or back pain. His left shoulder is healing well. Postop left upper extremity edema also improving. No ill contacts. No recent travel. No pets. No gardening or yard work. On April 12, he and his
did go look at a big property with large acres of vegetation/grass/weeds. They did walk to the vegetations. He was wearing shorts with sneakers and ankle socks.
Past History
Additional Past Medical History:
CAD status post CABG
History of PE
Dyslipidemia
BPH status post TURP
Left total shoulder arthroplasty 03/26/25
Allergy History:
Penicillins Allergy (Verified 04/16/25 09:15)
Hives
venom-honey bee (bee venom (honey bee)) Allergy (Verified 04/16/25 09:15)
Swelling
Medications Reviewed: Yes
Current Antibiotics:
Ceftriaxone
Social History
Tobacco: Non-Smoker
Alcohol: None
Personal:
Living: With Family
Employment: Employed
Family History
Family History: Not Pertinent
Review of Systems
Review of Systems
General: Fever, Chills and Change in Appetite
HEENT: Negative Stiff Neck or Sinus Problems
Cardiovascular: Negative Chest Pain, Dyspnea or Edema
Respiratory: Negative Dyspnea or Cough
Gasteroenterology: Negative Nausea, Vomiting or Diarrhea
Genital / Urological: Negative Dysuria, Hematuria or Flank Pain
Endocrine: Negative Weakness
Musculoskeletal: Negative Arthralgias or Myalgias
Skin / Hair / Nails: Negative Rash
Neurological: Negative Dizziness
All systems: All other systems were reviewed and were negative
Vital Signs
Temp Pulse Resp BP Pulse Ox
98.2 F 60 18 147/78 98
04/16/25 15:25 04/16/25 15:04/16/25 15:25 04/16/25 15:25 04/16/25 15:25
Physical Exam
Physical Exam
Constitutional: No Acute Distress and Comfortable
Head: Other (no frontal or maxillary sinus tenderness)
Eyes: No Conjunctival Hemorrhage and Sclera Anicteric
Pharynx: Benign
Oral: No Thrush
Cardiovascular: Regular Rate and S1/S2
Pulmonary: Clear
Gastrointestinal: Soft, Non Tender, Non Distended and Normal Bowel Sounds
Genito-Urinary: Negative CVA Tenderness
Extremities: Edema (LUE - postop improving)
Musculoskeletal: Other (Left shoulder incision with steri-strips; no effusion/erythema/warmth, ROM intact); Negative Spinal Tenderness
Skin: Negative Rash
Neurological: AO x 3
Lab / Diagnostic Study Results
04/16/25 10:56
04/16/25 10:56
Abs Immat Gran (auto) 0.0 10^3/uL (0-0.05) 04/16/25 10:56
Absolute Neuts (auto) 1.3 10^3/uL (1.4-6.5) L 04/16/25 10:56
Absolute Lymphs (auto) 0.9 10^3/uL (1.2-3.4) L 04/16/25 10:56
Absolute Monos (auto) 0.5 10^3/uL (0.1-0.6) 04/16/25 10:56
Absolute Basos (auto) 0.0 10^3/uL (0-0.2) 04/16/25 10:56
Immature Gran % 0.4 % (0-0.5) 04/16/25 10:56
Neutrophils % 47.6 % (42.2-75.2) 04/16/25 10:56
Lymphocytes % 31.7 % (20.5-51.1) 04/16/25 10:56
Monocytes % 17.1 % (1.7-9.3) H 04/16/25 10:56
Eosinophils % 1.8 % (0-6) 04/16/25 10:56
Basophils % 1.4 % (0-2) 04/16/25 10:56
Lactic Acid Cancelled 04/16/25 13:45
Ur Squamous Epith Cells 3-5 /LPF (Few) 04/16/25 10:57
Microbiology Results
Micro:
04/16/25 10:58 Blood Culture - Pending
Blood/Venous
04/16/25 10:56 Blood Culture - Pending
Blood/Venous
Assessment / Plan
# Fever
# Acute leukopenia
# Mild indirect hyperbilirubinemia
- Suspect early tick-borne illness: Anaplasma vs Babesiosis. Exposure most-likely on 04/12.
- 04/14 Anaplasma/Erhlichia PCR pending. Lyme pending.
04/14 Babesia smear negative (can be false negative with low burden parasitemia)
- Repeat Babesia smear in AM.
- Ordered Babesia PCR in AM.
- Start empiric doxycycline 100mg po bid to cover Anaplasmosis/Ehrlichia/Lyme
- Follow temps, CBC, LFT's
# 04/14 E. coli bacteremia (1 of 2 set)
- Suspect contaminant
- Repeat blood cx's x 2 on 04/15, off abx, neg to date.
- UA neg.
- OK for CT a/p to eval occult abscess.
Care Review
Plan reviewed with: Physician (Dr. Shukla)
--- NOTE | 2025-04-16 16:04 | PTCARENOTE ---
pt admitted from ED AOx3, LCTA B/L on RA reg Hr, abd soft NT. cont b&B. No edema, skin CDI with the exception of a surgical incision on left shoulder form replacement 03/26/25. +pp b/l. spouse at bedside, CB in reach- instructed on use.
[2025-04-16] MEDS: LOVENOX 40 MG SC (17:09)
[2025-04-16] MEDS: LIPITOR 40 MG PO (17:09)
[2025-04-16] MEDS: STERILE WATER FOR INJECTION 20 ML IV (20:40)
[2025-04-16] MEDS: ROCEPHIN 2000 MG IV (20:40)
[2025-04-16] MEDS: VIBRAMYCIN 100 MG PO (20:41)
[2025-04-16] MEDS: MELATONIN 5 MG PO (21:42)
[2025-04-17 05:49] LABS: Hematocrit 39.2 % (39.0-52.0); Hemoglobin 13.4 g/dL (13.0-18.0); Mean Corp Hgb Conc. 34.2 g/dL (33.0-37.0); Mean Corpuscular Volume 86.2 fL (80.0-94.0); Nucleated Red Blood Cells % 0 % (-); Platelet Count 180 10^3/uL (130-400); Red Cell Dist. Width 13.0 % (11.5-14.5)
[2025-04-17 06:58] LABS: Blood Urea Nitrogen 14 mg/dl (9-20); Calcium 8.5 mg/dl (8.4-10.2); Carbon Dioxide 26 mmol/L (22-30); Chloride 104 mmol/L (98-107); Estimated Creatinine Clearance 67 ml/min; Glucose 99 mg/dl (70-99); Magnesium 1.8 mg/dl (1.6-2.3); Potassium 4.0 mmol/L (3.5-5.1); Sodium 138 mmol/L (135-145); eGFR > 60.00
[2025-04-17 07:00] VITALS: BP 152/78
--- NOTE | 2025-04-17 08:02 | W.PN.HOSP.TC ---
Today's Communication/Plan
-
IV Ceftriaxone
oral Doxy
appreciate ID
CT A/P ordered
Assessment / Plan
Assessment / Plan
Mr. Mayco Mnedez is a 79 yo man with hx CAD s/p CABG, HLD, left shoulder replacement 03/26/25, ER visit 04/14 for fever (102.6) with culture growing gram negative rods, called back to the ER.
CXR 04/14/25
IMPRESSION:
No acute cardiopulmonary abnormality.
Chronic left basilar atelectasis/scarring, similar to prior.
Fever in setting of E. Coli growth in blood culture - contaminant versus E. Coli Bacteremia;
-UA clear, covid negative, Anaplasma, Lyme, Ehrlichia, Babesia testing pending
-Fever curve was improving without antibiotics - although low likelihood of E. Coli being a contaminant
-given completely benign abdominal exam, holding off on CT
-consult ID
-IV Ceftriaxone 2G q 24 hours
-Doxycycline 100mg PO BID
-s/p IVF in ER
-afebrile overnight
-I will order a CT today
CAD
Hx CABG 12 years ago
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
DVT PPx Lovenox subQ
FULL CODE
Anticipated Discharge: 24 - 48 hours
Subjective/Interval History
-
Date of Service: April 17, 2025
no abdominal pain
no fevers overnight
feels a bit constipated and reports change in BM since surgery on shoulder
Objective Data
-
Labs:
Laboratory Results
04/17/25
05:38
WBC 4.6 L
Hgb 13.4
Hct 39.2
Plt Count 180
Sodium 138
Potassium 4.0
Chloride 104
Carbon Dioxide 26
BUN 14
Creatinine 0.9
Glucose 99
Calcium 8.5
Vital Signs:
Vital Signs
Temp Pulse Resp BP Pulse Ox
98.1 F 63 18 152/78 96
04/17/25 07:00 04/17/25 07:00 04/17/25 07:00 04/17/25 07:00 04/17/25 07:00
I&O
04/16/25 04/17/25 04/18/25
06:59 06:59 06:59
Intake Total 860 / 860
Balance 860 / 860
Review of Systems
-
History Source: Patient
All other systems: Reviewed and negative
Physical Exam
-
General: No Apparent Distress
HEENT: PERRLA
Respiratory: Clear to Auscultation; Negative Wheezes
Cardiac: Regular Rhythm and S1/S2
GI: Soft and Nontender
Musculoskeletal: No Edema
Skin: Warm and Dry; Negative Rash
Neuro: AO x 3
Data Reviewed
-
Diagnostic Radiology: Report Reviewed by me
Labs: Labs Reviewed by me
[2025-04-17] MEDS: ASPIRIN 325 MG PO (08:11)
[2025-04-17] MEDS: VIBRAMYCIN 100 MG PO (08:11)
[2025-04-17] MEDS: OMNIPAQUE 50 ML PO (09:40)
--- NOTE | 2025-04-17 13:07 | W.PN.ID1 ---
Date of Service
Date of Service: April 17, 2025
Today's Communication
- Can dc home on empiric doxycycline 100mg po bid x 14d while awaiting lab results.
Assessment / Plan
# Fever resolved
# Acute leukopenia improving
# Mild indirect hyperbilirubinemia
- Suspect early tick-borne illness: Anaplasma vs Babesiosis. Exposure most-likely on 04/12.
- 04/14 Anaplasma/Ehrlichia PCR pending. Lyme pending.
04/14 Babesia smear negative (can be false negative with low burden parasitemia)
- Repeat Babesia smear negative
- Babesia PCR pending
- Can dc home on empiric doxycycline 100mg po bid x 14d while awaiting lab results.
# 04/14 E. coli bacteremia (1 of 2 set)
- Suspect contaminant
- Repeat blood cx's x 2 on 04/15 and 04/16, off abx, neg to date.
- UA neg.
- CT a/p no occult abscess.
Chief Complaint
-: Fever
Subjective / Review of Systems
Feels much improved. No symptoms today.
Vital Signs / Physical Exam
Vital Signs
Vital Signs
Temp Pulse Resp BP Pulse Ox
98.1 F 63 18 152/78 96
04/17/25 07:00 04/17/25 07:00 04/17/25 07:00 04/17/25 07:00 04/17/25 07:00
Physical Exam
Constitutional: No Acute Distress and Comfortable
Eyes: No Conjunctival Hemorrhage and Sclera Anicteric
Cardiovascular: Regular Rate and S1/S2
Pulmonary: Clear
Gastrointestinal: Soft, Non Tender, Non Distended and Normal Bowel Sounds
Extremities: Negative Edema
Neurological: AO x 3
Objective Data
Lab Data
Lab Results
04/17/25 05:38
04/17/25 05:38
Estimated Creat Clear 67 ml/min 04/17/25 05:38
Lactic Acid Cancelled 04/16/25 13:45
Total Bilirubin 1.5 mg/dl (0.2-1.3) H 04/16/25 10:56
AST 26 U/L (17-59) 04/16/25 10:56
ALT 28 U/L (0-50) 04/16/25 10:56
Alkaline Phosphatase 53 U/L (38-126) 04/16/25 10:56
Most recent labs reviewed.
Micro Results:
04/17/25 05:38 Blood Parasites Smear - Final
Blood/Venous
04/16/25 10:58 Blood Culture - Preliminary
Blood/Venous No Growth in 24 hours- Final report to follow
04/16/25 10:56 Blood Culture - Preliminary
Blood/Venous No Growth in 24 hours- Final report to follow
CT a/p: Cholelithiasis. No biliary tract dilatation. Distal colonic diverticulosis. Two small contiguous/adjacent simple right lobe hepatic cysts. Mildly enlarged prostate gland.
Care Review
Plan reviewed with: Physician (Dr. Shukla)
[2025-04-17 15:00] VITALS: BP 152/76
--- NOTE | 2025-04-17 15:32 | CM ---
Spoke with patient and Delmy in room.
As per MD note plan is to transition to po antibitics at discahrge.
Offered VN . Pt declined need .
PLAN Home no needs
--- NOTE | 2025-04-17 15:38 | W.DS.TRANS ---
DC Summary - [employer]
-
Discharge Instructions:
Discharge Diagnosis/Procedures fever, suspect tick-borne illness
Diet Regular
Activity As tolerated
Driving Restrictions As prior to admission
Bathing Restrictions None
Instructions:
Stand-Alone Forms:
Changes to Home Medications: Yes
Discharge Medications:
DC Medications w/original date entered in [facility]
atorvastatin 40 mg tablet 40 mg PO QPM High cholesterol 04/25/18
cyanocobalamin (vitamin B-12) 1,000 mcg tablet 1,000 mcg PO DAILY Supplement ##0 03/10/25
aspirin 325 mg tablet 325 mg PO DAILY blood clot prevention #1 tab 03/26/25
cholecalciferol (vitamin D3) 50 mcg (2,000 unit) tablet 2,000 units PO DAILY Supplement 04/16/25
ibuprofen 200 mg tablet (Advil) 400 mg PO Q6HPRN PRN mild pain 04/16/25
doxycycline hyclate 100 mg capsule 100 mg PO Q12 #26 caps 04/17/25
Home Medication Changes
addition of Doxycycline
Pending Results: Yes
Additional Pending Results:
Anaplasma, Ehrlichia, Babesia testing pending
--- NOTE | 2025-04-17 15:42 | W.DCSUMMARY ---
Discharge Summary
Discharge Data
Date of Admission: 04/16/25
Date of Discharge: 04/17/25
-
Pending Results: Yes
Additional Pending Results:
Anaplasma, Lyme, Ehrlichia, Babesia testing pending
Hospital Course
Discharging Physician : Dr. Tracy Shukla
Disposition : Home
Primary care physician : Dr. Paolo Moreno
Principal Discharge diagnosis : Fever, concern for tick-borne illness with E. Coli in one blood culture likely contaminant
Hospital Course :
Mr. 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
likely contaminant) represents 04/16 with fever of 100.9. BP stable.
Patient was started on IV antibiotics for treatment of gram negative bacteremia, resulted as E. Coli. He was admitted to medicine with ID consulting. He had had repeat blood cultures at following 2 ER visits (prior to antibiotics) that have
remained negative. CT A/P without occult abscess or e/o infection. Per ID, OK to stop antibiotics for E. Coli as culture suspected to be contaminant.
Patient reported walking through area of large vegetation/grass/weeds prior to onset of symptoms. Concern that fever/rigors related to tick-borne illness. Lyme negative. Babesia negative (can be false negative if low % parasitemia). Babesia PCR
pending, Anaplasma/Ehrlichia pending. He is discharged on Doxycycline 100mg PO BID to complete a 2 week course.
Time spent on discharge was 35 minutes.
Important imaging findings :
CT A/P 04/17/25
IMPRESSION:
Cholelithiasis. No biliary tract dilatation.
Distal colonic diverticulosis.
Two small contiguous/adjacent simple right lobe hepatic cysts.
Mildly enlarged prostate gland.
Procedure findings :
Discharge Plan
-
Patient Disposition: Home (Routine Discharge)
Discharge Diagnosis/Procedures: fever, suspect tick-borne illness
Diet: Regular
Activity: As tolerated
Driving Restrictions: As prior to admission
Bathing Restrictions: None
Referrals:
Paolo Moreno MD [Family Provider, Family Practice] - in less than 1 week
Larissa Bush MD [Active, Infectious Diseases] - As needed
Additional Discharge Medication Instructions: Doxycycline Precautions
�� Take with at least 6 oz H2O
�� Take with food but no calcium containing products like milk or cheese
�� Ideally you would not take any multivitamins, calcium, magnesium or zinc containing products.
�� If you must take one of these products make sure that the pills are by at least 3 hours.
�� Sit up for at least 30 minutes after each dose to prevent heartburn.
�� Your skin will be more sensitive to the sun while you are on doxycycline - it will be very easy for you to get a sunburn.
Prescriptions:
New
doxycycline hyclate 100 mg Capsule
100 mg PO Q12 Qty: 26 0RF
Continued
atorvastatin 40 MG tablet
40 mg PO QPM
cyanocobalamin (vitamin B-12) 1,000 mcg Tablet
1,000 mcg PO DAILY Qty: 0
aspirin 325 mg tablet
325 mg PO DAILY Qty: 1 0RF
ibuprofen [Advil] 200 mg Tablet
400 mg PO Q6HPRN PRN (Reason: mild pain)
cholecalciferol (vitamin D3) 2,000 UNITS tablet
2,000 units PO DAILY
Discharge Orders:
Discharge Patient (As Directed); Ordered 04/17/25
Ordered By: Tracy Shukla
Discharge Date and Time
Print Language: TELUGU
[2025-04-17 19:33] LABS: Hepatitis C Antibody Negative (Negative)
== END 2025-04-17 16:18 | disposition home or self-care (01) | DRG 872 ==
LOC: 3 WEST ACU 13:51
PROVIDERS: ADMITTING PHYSICIAN Student in an Organized Health Care Education/Training Program; CONSULT PHYSICIAN Internal Medicine Infectious Disease; EMERGENCY PHYSICIAN Emergency Medicine; FAMILY PHYSICIAN Family Medicine
DX: R78.81 Bacteremia (principal); J98.11 Atelectasis; R35.0 Frequency of micturition; M25.511 Pain in right shoulder; I25.10 Atherosclerotic heart disease of native coronary artery without angina pectoris; I10 Essential (primary) hypertension; E78.00 Pure hypercholesterolemia, unspecified; K57.30 Diverticulosis of large intestine without perforation or abscess without bleeding; B96.20 Unspecified Escherichia coli [E. coli] as the cause of diseases classified elsewhere; K76.89 Other specified diseases of liver; N40.0 Benign prostatic hyperplasia without lower urinary tract symptoms; K80.20 Calculus of gallbladder without cholecystitis without obstruction; Z96.612 Presence of left artificial shoulder joint; Z88.0 Allergy status to penicillin; Z95.1 Presence of aortocoronary bypass graft; Z91.030 Bee allergy status; Z86.711 Personal history of pulmonary embolism; Z90.79 Acquired absence of other genital organ(s); I25.2 Old myocardial infarction
CPT/HCPCS: 74177; 80048; 80053; 81003; 81015; 82248; 83605; 83735; 85025; 86803; 87015; 87040; 87207; 96361; 96374; 99285; Q9967